=== PATIENT | female | born 2000 | race African-American/Black ===

== ENCOUNTER 2021-01-18 16:55 | Emergency (ER) | payer MEDICAID ==
[~2021-01-18] VITALS: Ht 165.1 cm; Wt 73.0 kg
[2021-01-18] MEDS ORDERED: AZITHROMYCIN 500 MG TABLET PO ONE (19:45)
[2021-01-18] MEDS ORDERED: IBUPROFEN 600MG TABLET PO ONE (19:45)
[2021-01-18] MEDS ORDERED: IBUP-2029 MT (20:19)
[2021-01-18] MEDS ORDERED: AZIT250T12 MT (20:19)
[2021-01-18 20:36] VITALS: BP 116/76
== END 2021-01-18 21:20 | disposition home or self-care (01) ==
LOC: ER 16:55
DX: J02.9 Acute pharyngitis, unspecified (principal); F12.10 Cannabis abuse, uncomplicated; Z13.9 Encounter for screening, unspecified
CPT/HCPCS: 81025; 87070; 87430; 99283